=== PATIENT | female | born 1980 | race African-American/Black ===

== ENCOUNTER 2024-04-25 10:42 | Emergency (ER) | payer OTHER ==
[~2024-04-25] VITALS: Ht 160 cm; Wt 63.6 kg
[2024-04-25 10:53] VITALS: TEMP 98.1
[2024-04-25] MEDS ORDERED: dexAMETHasone 10 MG/ML VIAL IM ONE (11:00)
[2024-04-25] MEDS ORDERED: diphenhydrAMINE 50 MG/ML 1 ML VIAL IM ONE (11:00)
[2024-04-25 12:15] VITALS: BP 150/104; PULSE 77
== END 2024-04-25 12:15 | disposition home or self-care (01) ==
LOC: COL.ER 10:42
DX: T63.441A Toxic effect of venom of bees, accidental (unintentional), initial encounter (principal)
CPT/HCPCS: J1100; J1200